=== PATIENT | female | born 1985 | race Caucasian/White ===

== ENCOUNTER → 2018-12-19 12:19 | Outpatient (CLI) | payer OTHER | END | disposition home or self-care (01) | LOC: LAB 12:19 | DX: E11.65 Type 2 diabetes mellitus with hyperglycemia (principal); N39.0 Urinary tract infection, site not specified; M62.82 Rhabdomyolysis; E03.8 Other specified hypothyroidism; D64.89 Other specified anemias; E78.2 Mixed hyperlipidemia ==

== ENCOUNTER → 2019-04-26 12:14 | Outpatient (CLI) | payer OTHER | END | disposition home or self-care (01) | LOC: LAB 12:14 | DX: N30.00 Acute cystitis without hematuria (principal) ==

== ENCOUNTER 2021-04-17 08:00 | Outpatient (CLI) | payer OTHER | END 2021-04-17 08:30 | disposition home or self-care (01) | LOC: PPH VACUNA 08:00 | PROVIDERS: ATTEND Emergency Medicine Pediatric Emergency Medicine | DX: Z23 Encounter for immunization (principal) ==

== ENCOUNTER 2022-04-05 14:45 | Inpatient (IN) | payer OTHER ==
[~2022-04-05] VITALS: Ht 152.4 cm; Wt 56.2 kg
[2022-04-10] MEDS ORDERED: VALTREX1000 MG PO (13:56)
[2022-04-10] MEDS ORDERED: PRENATAL TABLE1 EAC1 PO (13:56)
== END 2022-04-12 14:03 | disposition home or self-care (01) | DRG 807 ==
LOC: EDSTATUS 14:45 → LDR 04-10 09:09 → OB/GYN 04-10 09:09
PROVIDERS: ADMIT Obstetrics & Gynecology; ATTEND Obstetrics & Gynecology
PROC: 10E0XZZ Delivery of Products of Conception, External Approach (ICD-10-PCS; principal; 2022-04-10)
PROC: 0KQM0ZZ Repair Perineum Muscle, Open Approach (ICD-10-PCS; 2022-04-10)
PROC: 4A1HXCZ Monitoring of Products of Conception, Cardiac Rate, External Approach (ICD-10-PCS; 2022-04-10)
DX: O70.1 Second degree perineal laceration during delivery (principal); Z37.0 Single live birth; Z3A.39 39 weeks gestation of pregnancy; Z20.822 Contact with and (suspected) exposure to COVID-19

== ENCOUNTER 2022-04-17 13:32 | Outpatient (CLI) | payer OTHER ==
[~2022-04-17 13:32] MED LIST: PRENATAL TABLE1 EAC1 PO; VALTREX1000 MG PO
== END 2022-04-17 23:00 | disposition home or self-care (01) ==
LOC: LAB 13:32
PROVIDERS: ATTEND Obstetrics & Gynecology
DX: N91.1 Secondary amenorrhea (principal); D64.9 Anemia, unspecified

== ENCOUNTER 2023-11-25 12:11 | Outpatient (CLI) | payer OTHER | END 2023-11-25 12:52 | disposition home or self-care (01) | LOC: RAD 12:11 | PROVIDERS: ATTEND Specialist | DX: N20.0 Calculus of kidney (principal) ==

== ENCOUNTER → 2023-11-25 12:19 | Outpatient (CLI) | payer OTHER ==
[2023-11-25 12:54] LABS: HEMATOCRIT 40.6 % (36.0-45.00); HEMOGLOBIN 13.9 g/dL (12.0-15.00); MEAN CELL VOLUME 84.5 fL (80.00-100.00); MEAN CORPUSCULAR HEMOGLOBIN 28.8 pg (27.00-32.0); MEAN CORPUSCULAR HGB CONC 34.1 g/dl (32.0-36.0); PLATELET COUNT 328 K/uL (150-450); RED BLOOD COUNT 4.81 M/uL (4.00-6.00); RED CELL DISTRIBUTION WIDTH 13.7 % (11.5-14.5)
[2023-11-25 13:36] LABS: PH,URINE 5.5 (5.0-8.0); URINE APPEARANCE Cloudy; URINE BILIRRUBIN Negative (NEGATIVE); URINE BLOOD Negative; URINE COLOR Yellow; URINE GLUCOSE Negative (NEGATIVE); URINE KETONE Negative (NEGATIVE); URINE LEUKOCYTE Small; URINE NITRATE Negative; URINE PROTEIN Negative (NEGATIVE); URINE UROBILINOGEN 0.2 E.U./dl
[2023-11-25 13:41] LABS: URINE BACTERIA 1946.5 uL (0.0-1933); URINE EPITHELIAL CELLS 43.5 uL (0.0-38.8); URINE RBC 14.1 uL (0.0-20.8); URINE WBC 145.4 uL (0.0-23.2)
[2023-11-25 14:08] LABS: ALBUMIN 4.3 gm/dL (3.4-5.0); ALKALINE PHOSPHATASE 60 U/L (50-136); ALT/SGPT 26 U/L (12-78); ANION GAP 4 (10.0-20.0); AST/SGOT 20 U/L (15-37); BILIRUBIN TOTAL 0.43 mg/dL (0.3-1.2); BLOOD UREA NITROGEN 16 mg/dL (7-18); BUN CREA RATIO 25 (7.0-25.0); CALCIUM 9.5 mg/dL (8.5-10.1); CARBON DIOXIDE 32 mEq/L (21-32); CHLORIDE 107 mmol/L (98-107); CHOL HDL RATIO 2.3 (0-5.0); CHOLESTEROL 175 mg/dL (0-200); CREATININE SERUM 0.63 mg/dL (0.55-1.02); FREE TRIODOTIRONINE 2.62 pg/ml (2.18-3.98); GFR 106.33; GLOBULINA 3.4 G/DL (2.4-3.5); GLUCOSE FASTING 87 mg/dL (65-100); HDL 75 mg/dl (40-60); LDL 91 mg/dl (0-130); OSMOLALITY SERUM 278 MOSM/KG (275-295); POTASSIUM 4.29 mEq/L (3.5-5.1); SODIUM 139 mmol/L (136-145); T4 FREE 0.96 NG/ML (0.76-1.46); TOTAL PROTEIN 7.7 gm/dL (6.4-8.2); TRIGLYCERIDES 43 mg/dL (0-150); TSH 0.585 uIU/mL (0.358-3.74); VLDL 8 (0-39)
[2023-11-25 14:11] LABS: C-REACTIVE PROTEIN < 0.29 MG/DL (0.00-0.29)
== END | disposition home or self-care (01) ==
LOC: LAB 12:19
PROVIDERS: ATTEND Specialist
DX: E03.9 Hypothyroidism, unspecified (principal); E11.21 Type 2 diabetes mellitus with diabetic nephropathy; N39.9 Disorder of urinary system, unspecified; E78.2 Mixed hyperlipidemia; D64.9 Anemia, unspecified; E11.65 Type 2 diabetes mellitus with hyperglycemia; J45.998 Other asthma; N39.0 Urinary tract infection, site not specified